=== PATIENT | male | born 1985 | race Caucasian/White ===

== ENCOUNTER 2016-05-14 21:12 | Emergency (ER) | payer SELFPAY ==
--- NOTE | 2016-05-14 22:13 | ED NURSING NOTES ---
Clinical Report - Nurses [facility] [address] [place] [address] 05/14/2016 21:15 Patient: CECE ARMANDO TRIAGE Triage time 21:47 May 14 2016. Acuity: LEVEL 5. Chief Complaint: (itching and picking). Alert. No acute distress. JENNY COMA SCORE: [place] Coma Scale: 15- eyes open spontaneously (4); best verbal response- oriented x 4 (5); best motor response- obeys commands (6). --21:49 Margarita Greco R.N. 21:47 05/14/16. BP: 119/84. HR: 91. RR: 18. O2 saturation: 97%. Temp: 98.2 F. Pain level now 0/10. --21:49 Margarita Greco R.N. Weight: 72.5 kg estimated. Height/Length: 69 inches Estimated. BMI: 23.6. --21:47 Margarita Greco R.N. Medications None. --21:48 Margarita Greco R.N. Allergies No Known Drug Allergy. --21:48 Margarita Greco R.N. History Arrived by private vehicle. Historian: patient. Accompanied by friend. Primary physician (none). This is a recurrent problem. Treatment HOSPITALITY INTERN: None. SOCIAL HX: Smoker- current status unknown. History of IV drug use: heroin, methamphetamines. NUTRITIONAL RISK ASSESSMENT: The nutritional risk assessment revealed no deficiencies. FUNCTIONAL ASSESSMENT: Functional assessment: no impairments noted. LEARNING NEEDS ASSESSMENT: The learning needs assessment revealed no barriers. SKIN INTEGRITY ASSESSMENT: Skin integrity risk assessment completed. No skin integrity risk identified. --21:49 Margarita Greco R.N. PROBLEMS: MRSA Infection. Lice. Paronychia. Tetanus Status. --21:48 Margarita Greco R.N. ADDITIONAL SURGERIES: Left middle finger. Right forearm . --21:48 Margarita Greco R.N. Interventions ID band on patient. To room. --21:49 Margarita Greco R.N. PHYSICAL ASSESSMENT Ambulatory to room. GENERAL / NEURO / PSYCH: Appears in no acute distress. ( pt is very calm). RESPIRATORY: Respirations not labored. SKIN: Skin rash. ( red scab like sores all over chest, face, head, ears, and hands. All scabbed over. Pt is picking at his arms.). Skin breakdown noted. --22:09 Margarita Greco R.N. NURSING PROGRESS NOTES ( pt evaluated by CHIEF ARCHITECT in triage room.). --22:10 Margarita Greco R.N. DISPOSITION / DISCHARGE Departure time: 22:10 May 14 2016. Condition at departure: stable. No learning barriers present. Director Cpg verbalized understanding. Written instructions provided in Kazakh. The patient was discharged by the nurse practitioner. He was discharged home and accompanied by program consultant. He left the Emergency Department ambulatory and via private vehicle. Director Cpg driving. --22:11 Margarita Greco R.N. Reviewed medication(s). --22:35 Margarita Greco R.N. Locked/Released at 05/14/2016 23:01 by Margarita Greco R.N.
--- NOTE | 2016-05-14 22:13 | ED CLINICAL REPORT ---
Clinical Report - Physicians/Mid Levels [facility] [address] [place] [address] 05/14/2016 21:15 Patient: CECE ARMANDO Time Seen: 0. Arrived- By private vehicle. Historian- patient and family. HISTORY OF PRESENT ILLNESS Chief Complaint: (parasites). This started unknown and is still present and worsening. It is described as itchy. Not painful or burning. It has been generalized in location. Cause has been identified (states that there are worms coming out of his skin). (pt here with girlfriend with same thing states he just got out of intermediate, and since then the worms have gotten worse, they are coming out of his ears and out of skin, and he picks them out, can't stop picking at them). Similar symptoms previously: Chronically. Recent medical care: Not recently seen/assessed. REVIEW OF SYSTEMS All systems otherwise negative, except as recorded above. PAST HISTORY See nurses notes. PROBLEMS: MRSA Infection. Lice. Paronychia. Tetanus Status. --21:48 Margarita Greco R.N. ADDITIONAL SURGERIES: Left middle finger. Right forearm . --21:48 Margarita Greco R.N. SOCIAL HISTORY Smoker- current status unknown. Occasional alcohol use. History of heavy IV drug use: heroin, methamphetamines. Recently used drugs today. Under influence in ED. Is a local resident. He lives with a family member. FAMILY HISTORY Negative. ADDITIONAL NOTES The nursing notes have been reviewed with agreement regarding the chief complaint, HPI, ROS, PMH and patient medications and allergies. PHYSICAL EXAM Vital Signs: 05/14/2016 21:47 BP: 119/84. HR: 91. RR: 18. O2 saturation: 97%. Temp: 98.2 F. Have been reviewed as normal and appear to be correct. Appearance: Alert. Oriented X3. No acute distress. Eyes: Pupils equal, round and reactive to light. Conjunctivae and eyelids normal. ENT: Ears normal. Nose normal. Neck: Neck supple. Respiratory: No respiratory distress. Skin: Skin warm and dry. Normal skin color. Rash present. Normal skin turgor. (multiple scabs of different sizes, generalized, face, neck, head, arms, trunk, with excoriations). Extremities: Normal external inspection. Extremities nontender. Neuro: Oriented X 3. No motor deficit. No sensory deficit. PROGRESS AND PROCEDURES Patient and family counseled in person regarding the patient's stable condition and diagnosis. 22:12. Differential Diagnosis: Other possible considerations: substance abuse, scabies, psychogenic, excoriations, mrsa, abscess, cellulitis, impetigo. Above considerations are based on history and physical exam. Differential diagnosis was discussed with patient and patient's family. Disposition: Discharged home in good and unchanged condition (22:13). Condition: good and stable. CLINICAL IMPRESSION Bullous impetigo Chronic substance abuse- heroin, methamphetamines with intoxication and delirium. INSTRUCTIONS (over the counter pyrantel pameoate, and may consider bathing in lice shampoo, as discussed). Warnings: GENERAL WARNINGS: Return or contact your physician immediately if your condition worsens or changes unexpectedly, if not improving as expected, or if other problems arise. Specifically return if problem worsens. Prescription Medications: Elimite 5% Cream: Shower & dry, then apply cream to whole body from neck down, leave on 8 hours then shower & launder clothes & bedclothes in hot water. Dispense sixty (60) gm. No refill. Substitution is permissible. Keflex 500 mg: take 1 capsule orally every 6 hours for 7 days. No refills. Substitution is permissible. Bactroban 2% ointment: apply small amount to affected area three times daily for 5 days. Dispense twenty-two (22) grams. No refills. Substitution is permissible. Follow-up: Follow up with your doctor in about one week as needed. Call for an appointment. Summary of care provided to patient. Understanding of the discharge instructions verbalized by patient. (Electronically signed by Michelle Morley A.R.N.P. 05/14/2016 22:41)
--- NOTE | 2016-05-14 22:13 | ED NURSING NOTES ---
Clinical Report - Nurses [facility] [address] [place] [address] 05/14/2016 21:15 Patient: CECE ARMANDO TRIAGE Triage time 21:47 May 14 2016. Acuity: LEVEL 5. Chief Complaint: (itching and picking). Alert. No acute distress. JENNY COMA SCORE: [place] Coma Scale: 15- eyes open spontaneously (4); best verbal response- oriented x 4 (5); best motor response- obeys commands (6). --21:49 Margarita Greco R.N. 21:47 05/14/16. BP: 119/84. HR: 91. RR: 18. O2 saturation: 97%. Temp: 98.2 F. Pain level now 0/10. --21:49 Margarita Greco R.N. Weight: 72.5 kg estimated. Height/Length: 69 inches Estimated. BMI: 23.6. --21:47 Margarita Greco R.N. Medications None. --21:48 Margarita Greco R.N. Allergies No Known Drug Allergy. --21:48 Margarita Greco R.N. History Arrived by private vehicle. Historian: patient. Accompanied by friend. Primary physician (none). This is a recurrent problem. Treatment SENIOR PRODUCT ENGINEER: None. SOCIAL HX: Smoker- current status unknown. History of IV drug use: heroin, methamphetamines. NUTRITIONAL RISK ASSESSMENT: The nutritional risk assessment revealed no deficiencies. FUNCTIONAL ASSESSMENT: Functional assessment: no impairments noted. LEARNING NEEDS ASSESSMENT: The learning needs assessment revealed no barriers. SKIN INTEGRITY ASSESSMENT: Skin integrity risk assessment completed. No skin integrity risk identified. --21:49 Margarita Greco R.N. PROBLEMS: MRSA Infection. Lice. Paronychia. Tetanus Status. --21:48 Margarita Greco R.N. ADDITIONAL SURGERIES: Left middle finger. Right forearm . --21:48 Margarita Greco R.N. Interventions ID band on patient. To room. --21:49 Margarita Greco R.N. PHYSICAL ASSESSMENT Ambulatory to room. GENERAL / NEURO / PSYCH: Appears in no acute distress. ( pt is very calm). RESPIRATORY: Respirations not labored. SKIN: Skin rash. ( red scab like sores all over chest, face, head, ears, and hands. All scabbed over. Pt is picking at his arms.). Skin breakdown noted. --22:09 Margarita Greco R.N. NURSING PROGRESS NOTES ( pt evaluated by FUNERAL HOME ASSOCIATE in triage room.). --22:10 Margarita Greco R.N. DISPOSITION / DISCHARGE Departure time: 22:10 May 14 2016. Condition at departure: stable. No learning barriers present. Helpdesk Administrator verbalized understanding. Written instructions provided in Japanese. The patient was discharged by the nurse practitioner. He was discharged home and accompanied by carpet sewing machine operator. He left the Emergency Department ambulatory and via private vehicle. Helpdesk Administrator driving. --22:11 Margarita Greco R.N. Reviewed medication(s). --22:35 Margarita Greco R.N. Locked/Released at 05/14/2016 23:01 by Margarita Greco R.N.
--- NOTE | 2016-05-14 23:02 | ED MED RECONCILIATION SUMMARY ---
Patient: CECE ARMANDO Medication Reconciliation Report [facility] VisitID: [id number] [address] [place] [address] 30y, M Registration Date/Time: 05/14/2016 Weight: 72.5 kg Height/Length: 69 in. BMI: 23.6 ALLERGIES: No Known Drug Allergy The patient's Home Medications are listed below: NONE. The source(s) of the original Home Medication information: Not obtained. The following Medications were given to the patient in the Emergency Department: None. The following Medications were prescribed to the patient: Elimite 5% Cream: Shower & dry, then apply cream to whole body from neck down, leave on 8 hours then shower & launder clothes & bedclothes in hot water. Dispense sixty (60) gm. No refill. Substitution is permissible. -- Michelle Morley A.R.N.P. Keflex 500 mg: take 1 capsule orally every 6 hours for 7 days. No refills. Substitution is permissible. -- Michelle Morley A.R.N.P. Bactroban 2% ointment: apply small amount to affected area three times daily for 5 days. Dispense twenty-two (22) grams. No refills. Substitution is permissible. -- Michelle Morley A.R.N.P.
--- NOTE | 2016-05-14 23:02 | ED MAR SUMMARY ---
..... Medication Administration Record [facility] [address], [place] [id number] Patient: CECE ARMANDO Johnson Visit ID: [id number] 30y, M Weight: 72.5 kg Height/Length: 69 in BMI: 23.6 ALLERGIES: No Known Drug Allergy
--- NOTE | 2016-05-14 23:02 | ED DISCHARGE INSTRUCTIONS ---
Patient: CECE DE LEON General Instructions [facility] VisitID: [id number] [address] [place] [address] 30y, M Registration Date/Time: 05/14/2016 Bullous impetigo Chronic substance abuse- heroin, methamphetamines with intoxication and delirium. INSTRUCTIONS (over the counter pyrantel pameoate, and may consider bathing in lice shampoo, as discussed). Warnings: GENERAL WARNINGS: Return or contact your physician immediately if your condition worsens or changes unexpectedly, if not improving as expected, or if other problems arise. Specifically return if problem worsens. Prescription Medications: Elimite 5% Cream: Shower & dry, then apply cream to whole body from neck down, leave on 8 hours then shower & launder clothes & bedclothes in hot water. Dispense sixty (60) gm. No refill. Substitution is permissible. Keflex 500 mg: take 1 capsule orally every 6 hours for 7 days. No refills. Substitution is permissible. Bactroban 2% ointment: apply small amount to affected area three times daily for 5 days. Dispense twenty-two (22) grams. No refills. Substitution is permissible. Follow-up: Follow up with your doctor in about one week as needed. Call for an appointment. Summary of care provided to patient. Understanding of the discharge instructions verbalized by patient. ADDITIONAL INFORMATION Impetigo Impetigo is the name for a bacterial infection of the skin. It is common in children. It may start as an infected insect bite or scratch and spread rapidly to other areas of the body. It is contagious and can be given to other children by touching. The sores usually have a de leon brown crust and grow gradually larger as they spread. Impetigo requires treatment with an antibiotic. Home care The following guidelines will help you care for your infection at home: Trim fingernails and cover sores with an adhesive bandage if necessary to prevent scratching. Picking at the sores may leave a scar. Wash hands (yours and your child's) often. This will avoid spreading the infection to other parts of the body and to other children. Do not let your child share washcloths, towels, pillows, sheets, or clothes with others. Wash these items in hot water before using again. The sores should be washed three times a day with soap and water. Use a washcloth to scrub the sores and remove the crust. Then apply an antibacterial cream as directed. If antibiotic pills or liquid was prescribed, be sure your child takes all the medicine until it is gone. Your child should stay out of school until completing two full days of antibiotic treatment. Use acetaminophen for fever, fussiness or discomfort, unless another medicine was prescribed. In infants over six months of age, you may use ibuprofen instead of acetaminophen. If your child has chronic liver or kidney disease or has ever had a stomach ulcer or GI bleeding, talk with your doctor before using these medicines. (Aspirin should never be used in anyone under 18 years of age who is ill with a fever. It may cause severe liver damage. Follow-up care Follow up with your doctor or this facility if the sores continue to spread after three days of treatment. It will take about 710 days to heal completely. When to seek medical care Get prompt medical attention if any of the following occur: Increasing number of sores or spreading areas of redness after two days of treatment with antibiotics Increasing swelling, or pain Fever of 100.4F (38C) oral or 101.4F (38.5C) rectal or higher, not better with fever medication Increased amounts of fluid or pus coming from the sores Unusual drowsiness, weakness, or change in behavior Loss of appetite or vomiting Drug Abuse Use and abuse of such drugs as marijuana, amphetamines (speed, crank), cocaine, heroin or prescription pain medicines (Vicodin, codeine), sedatives and sleeping pills (Valium, Klonopin), PCP, mescaline and LSD may lead to addiction or dependence. Once this occurs, you are at greater risk for any of the following: Craving for the drug and unable to stop using the drug even though you think you want to stop (psychological dependence) Drug withdrawal symptoms if you stop taking the drug (physical dependence) Loss of your job or your family Arrest, conviction and assisted sentence for possession of an illegal substance or for driving under the influence of such a substance Accidental injuries to yourself or others while you are under the influence of the drug (in a car or at home). HIV infection (much greater risk if you use IV drugs) Other sexually transmitted diseases (herpes, chlamydia, gonorrhea and others) Severe and fatal infection of the heart valves (if you use IV drugs) Stroke, heart attack, hepatitis B or C, kidney failure from overdose Home Care: Admit you have a drug problem. Ask for help from your family and close friends. Seek professional help. This could be in the form of individual psychotherapy or counseling or an outpatient, inpatient, or residential drug treatment program. Join a self-help group for drug abuse. Avoid friends who abuse drugs themselves or tempt you to continue abusing drugs. Eat a balanced diet and begin a regular exercise program. Follow Up with your doctor or as advised by our staff. Contact one of the resources below for help. National [place] on Alcoholism and Drug Dependence www.ncadd.org 910-346-XOQE Narcotics Anonymous www.na.org 393-039-3531 National Alcohol and Substance Abuse Information Center (for referral to treatment programs) www.[employer] 189-341-3457 Get Prompt Medical Attention if any of the following occur: Agitation, anxiety, unable to sleep Unintended weight loss (more than 10 to 15 pounds over 3 months) Seizure Chest pain Fever of 100.4F (38C) or higher, or as directed by your healthcare provider Excess drowsiness or inability to be awakened Shortness of breath Slow breathing under 8 breaths per minute Cough with colored sputum Redness, swelling or tenderness at an injection site Permethrin Topical cream What is this medicine? PERMETHRIN (per METH rin) skin cream is used to treat scabies. How should I use this medicine? This medicine is for external use only. Do not take by mouth. Follow the directions on the prescription label. A bath or shower is NOT recommended before applying this medicine. Thoroughly rub the cream into all skin surfaces, from your head to the soles of your feet. It is important to apply it everywhere on your body, not just where the rash is. Apply the cream between fingers and toe creases, in the folds of the wrist and waistline, in the cleft of the buttocks, on the genitals, and in the belly button. Use a toothpick to apply the cream beneath your fingernails and toenails. Nails should be cut short. If you have little or no hair, or you are applying the cream to an or young child, make sure you rub the cream into the neck, scalp, hairline, temples, and forehead. Leave it on for 8 to 14 hours, then remove it by bathing and shampooing. If you are applying this medicine to another person, wear plastic or disposable gloves to protect yourself from infestation. Do not get this medicine in your eyes. If you do, rinse out with plenty of cool tap water. Talk to your crop scout regarding the use of this medicine in children. While this drug may be prescribed for children as young as 2 months of age for selected conditions, precautions do apply. What side effects may I notice from receiving this medicine? Side effects that usually do not require medical attention (report to your doctor or health critical care rn if they continue or are bothersome): itching numbness rash redness or mild swelling of the skin stinging or burning tingling sensation What may interact with this medicine? Interactions are not expected. Do not use any other skin products on the affected area without telling your doctor or health critical care rn. What if I miss a dose? This does not apply. Where should I keep my medicine? Keep out of the reach of children. Store at room temperature away from heat and direct light. Do not refrigerate or freeze. Throw away any unused medicine after the expiration date. What should I tell my health care provider before I take this medicine? They need to know if you have any of these conditions: asthma an unusual or allergic reaction to permethrin, veterinary or household insecticides, other medicines, chrysanthemums, foods, dyes, or preservatives or trying to get breast-feeding What should I watch for while using this medicine? It is not unusual for itching and rash to continue for as long as 2 to 4 weeks after treatment. These symptoms may be a temporary reaction to the remains of the mites. This does not mean this cream did not work or that it needs to be reapplied. If you feel that the itching and rash is intense or if it continues beyond 4 weeks, talk to your doctor or health critical care rn right away. Scabies is spread by direct skin contact with an infected person. Family members and sexual partners may require treatment with this medicine. You should discuss this with your doctor or health critical care rn. Using a normal washing cycle, you should wash all clothing, towels and bed linen that has touched your skin. You do not need to rewash clean clothing that has not yet been worn. Roy, furniture, rugs, floors, and sears do not need to be cleaned in any special manner. Cephalexin Monohydrate Oral tablet What is this medicine? CEPHALEXIN (sef a NEMESIO in) is a cephalosporin antibiotic. It is used to treat certain kinds of bacterial infections It will not work for colds, flu, or other viral infections. How should I use this medicine? Take this medicine by mouth with a full glass of water. Follow the directions on the prescription label. This medicine can be taken with or without food. Take your medicine at regular intervals. Do not take your medicine more often than directed. Take all of your medicine as directed even if you think you are better. Do not skip doses or stop your medicine early. Talk to your crop scout regarding the use of this medicine in children. While this drug may be prescribed for selected conditions, precautions do apply. What side effects may I notice from receiving this medicine? Side effects that you should report to your doctor or health critical care rn as soon as possible: allergic reactions like skin rash, itching or hives, swelling of the face, lips, or tongue breathing problems pain or trouble passing urine redness, blistering, peeling or loosening of the skin, including inside the mouth severe or watery diarrhea unusually weak or tired yellowing of the eyes, skin Side effects that usually do not require medical attention (report to your doctor or health critical care rn if they continue or are bothersome): gas or heartburn genital or anal irritation headache joint or muscle pain nausea, vomiting What may interact with this medicine? probenecid some other antibiotics What if I miss a dose? If you miss a dose, take it as soon as you can. If it is almost time for your next dose, take only that dose. Do not take double or extra doses. There should be at least 4 to 6 hours between doses. Where should I keep my medicine? Keep out of the reach of children. Store at room temperature between 59 and 86 degrees F (15 and 30 degrees C). Throw away any unused medicine after the expiration date. What should I tell my health care provider before I take this medicine? They need to know if you have any of these conditions: kidney disease stomach or intestine problems, especially colitis an unusual or allergic reaction to cephalexin, other cephalosporins, penicillins, other antibiotics, medicines, foods, dyes or preservatives or trying to get breast-feeding What should I watch for while using this medicine? Tell your doctor or health critical care rn if your symptoms do not begin to improve in a few days. Do not treat diarrhea with over the counter products. Contact your doctor if you have diarrhea that lasts more than 2 days or if it is severe and watery. If you have diabetes, you may get a false-positive result for sugar in your urine. Check with your doctor or health critical care rn. Mupirocin Topical ointment What is this medicine? MUPIROCIN (myoo PEER oh sin) is an antibiotic. It is used on the skin to treat skin infections. How should I use this medicine? This medicine is for external use only. Follow the directions on the prescription label. Wash your hands before and after use. Before applying, wash the affected area with mild soap and water and pat dry. Apply a small amount to the affected area and rub gently. You can cover the area with a gauze dressing. Do not get this medicine in your eyes. If you do, rinse out with plenty of cool tap water. Do not use your medicine more often than directed. Finish the full course of medicine prescribed by your doctor or health critical care rn even if you think your condition is better. Do not use over large areas of burnt skin. Talk to your crop scout regarding the use of this medicine in children. Special care may be needed. What side effects may I notice from receiving this medicine? Side effects that you should report to your doctor or health critical care rn as soon as possible: skin rash, redness, continued swelling, burning, itching, stinging, or pain Side effects that usually do not require medical attention (report to your doctor or health critical care rn if they continue or are bothersome): dry skin, itching What may interact with this medicine? Interactions are not expected. Do not use any other skin products on the affected area without telling your doctor or health critical care rn. What if I miss a dose? If you miss a dose, take it as soon as you can. If it is almost time for your next dose, take only that dose. Do not take double or extra doses. Where should I keep my medicine? Keep out of the reach of children. Store at room temperature between 20 and 25 degrees C (68 and 77 degrees F). Throw away any unused medicine after the expiration date. What should I tell my health care provider before I take this medicine? They need to know if you have any of these conditions: an unusual or allergic reaction to mupirocin, polyethylene glycol (PEG), or other topical antibiotic medicine or trying to get breast-feeding What should I watch for while using this medicine? Tell your doctor or health critical care rn if your skin condition does not begin to improve within 3 to 5 days. You have been given the following additional information: Impetigo (Child) Drug Abuse Permethrin Topical cream Cephalexin Monohydrate Oral tablet Mupirocin Topical ointment (Electronically signed by Michelle Morley A.R.N.P. 05/14/2016 22:41)
--- NOTE | 2016-05-14 23:02 | ED MAR SUMMARY ---
..... Medication Administration Record [facility] [address], [place] [id number] Patient: CECE ARMANDO Johnson Visit ID: [id number] 30y, M Weight: 72.5 kg Height/Length: 69 in BMI: 23.6 ALLERGIES: No Known Drug Allergy
--- NOTE | 2016-05-14 23:02 | ED DISCHARGE INSTRUCTIONS ---
Patient: ECCE DE LEON General Instructions [facility] VisitID: [id number] [address] [place] [address] 30y, M Registration Date/Time: 05/14/2016 Bullous impetigo Chronic substance abuse- heroin, methamphetamines with intoxication and delirium. INSTRUCTIONS (over the counter pyrantel pameoate, and may consider bathing in lice shampoo, as discussed). Warnings: GENERAL WARNINGS: Return or contact your physician immediately if your condition worsens or changes unexpectedly, if not improving as expected, or if other problems arise. Specifically return if problem worsens. Prescription Medications: Elimite 5% Cream: Shower & dry, then apply cream to whole body from neck down, leave on 8 hours then shower & launder clothes & bedclothes in hot water. Dispense sixty (60) gm. No refill. Substitution is permissible. Keflex 500 mg: take 1 capsule orally every 6 hours for 7 days. No refills. Substitution is permissible. Bactroban 2% ointment: apply small amount to affected area three times daily for 5 days. Dispense twenty-two (22) grams. No refills. Substitution is permissible. Follow-up: Follow up with your doctor in about one week as needed. Call for an appointment. Summary of care provided to patient. Understanding of the discharge instructions verbalized by patient. ADDITIONAL INFORMATION Impetigo Impetigo is the name for a bacterial infection of the skin. It is common in children. It may start as an infected insect bite or scratch and spread rapidly to other areas of the body. It is contagious and can be given to other children by touching. The sores usually have a de leon brown crust and grow gradually larger as they spread. Impetigo requires treatment with an antibiotic. Home care The following guidelines will help you care for your infection at home: Trim fingernails and cover sores with an adhesive bandage if necessary to prevent scratching. Picking at the sores may leave a scar. Wash hands (yours and your child's) often. This will avoid spreading the infection to other parts of the body and to other children. Do not let your child share washcloths, towels, pillows, sheets, or clothes with others. Wash these items in hot water before using again. The sores should be washed three times a day with soap and water. Use a washcloth to scrub the sores and remove the crust. Then apply an antibacterial cream as directed. If antibiotic pills or liquid was prescribed, be sure your child takes all the medicine until it is gone. Your child should stay out of school until completing two full days of antibiotic treatment. Use acetaminophen for fever, fussiness or discomfort, unless another medicine was prescribed. In infants over six months of age, you may use ibuprofen instead of acetaminophen. If your child has chronic liver or kidney disease or has ever had a stomach ulcer or GI bleeding, talk with your doctor before using these medicines. (Aspirin should never be used in anyone under 18 years of age who is ill with a fever. It may cause severe liver damage. Follow-up care Follow up with your doctor or this facility if the sores continue to spread after three days of treatment. It will take about 710 days to heal completely. When to seek medical care Get prompt medical attention if any of the following occur: Increasing number of sores or spreading areas of redness after two days of treatment with antibiotics Increasing swelling, or pain Fever of 100.4F (38C) oral or 101.4F (38.5C) rectal or higher, not better with fever medication Increased amounts of fluid or pus coming from the sores Unusual drowsiness, weakness, or change in behavior Loss of appetite or vomiting Drug Abuse Use and abuse of such drugs as marijuana, amphetamines (speed, crank), cocaine, heroin or prescription pain medicines (Vicodin, codeine), sedatives and sleeping pills (Valium, Klonopin), PCP, mescaline and LSD may lead to addiction or dependence. Once this occurs, you are at greater risk for any of the following: Craving for the drug and unable to stop using the drug even though you think you want to stop (psychological dependence) Drug withdrawal symptoms if you stop taking the drug (physical dependence) Loss of your job or your family Arrest, conviction and [facility] sentence for possession of an illegal substance or for driving under the influence of such a substance Accidental injuries to yourself or others while you are under the influence of the drug (in a car or at home). HIV infection (much greater risk if you use IV drugs) Other sexually transmitted diseases (herpes, chlamydia, gonorrhea and others) Severe and fatal infection of the heart valves (if you use IV drugs) Stroke, heart attack, hepatitis B or C, kidney failure from overdose Home Care: Admit you have a drug problem. Ask for help from your family and close friends. Seek professional help. This could be in the form of individual psychotherapy or counseling or an outpatient, inpatient, or residential drug treatment program. Join a self-help group for drug abuse. Avoid friends who abuse drugs themselves or tempt you to continue abusing drugs. Eat a balanced diet and begin a regular exercise program. Follow Up with your doctor or as advised by our staff. Contact one of the resources below for help. National [place] on Alcoholism and Drug Dependence www.ncadd.org 298-136-UCLY Narcotics Anonymous www.na.org 864-138-1283 National Alcohol and Substance Abuse Information Center (for referral to treatment programs) www.Behalf 861-856-8811 Get Prompt Medical Attention if any of the following occur: Agitation, anxiety, unable to sleep Unintended weight loss (more than 10 to 15 pounds over 3 months) Seizure Chest pain Fever of 100.4F (38C) or higher, or as directed by your healthcare provider Excess drowsiness or inability to be awakened Shortness of breath Slow breathing under 8 breaths per minute Cough with colored sputum Redness, swelling or tenderness at an injection site Permethrin Topical cream What is this medicine? PERMETHRIN (per METH rin) skin cream is used to treat scabies. How should I use this medicine? This medicine is for external use only. Do not take by mouth. Follow the directions on the prescription label. A bath or shower is NOT recommended before applying this medicine. Thoroughly rub the cream into all skin surfaces, from your head to the soles of your feet. It is important to apply it everywhere on your body, not just where the rash is. Apply the cream between fingers and toe creases, in the folds of the wrist and waistline, in the cleft of the buttocks, on the genitals, and in the belly button. Use a toothpick to apply the cream beneath your fingernails and toenails. Nails should be cut short. If you have little or no hair, or you are applying the cream to an or young child, make sure you rub the cream into the neck, scalp, hairline, temples, and forehead. Leave it on for 8 to 14 hours, then remove it by bathing and shampooing. If you are applying this medicine to another person, wear plastic or disposable gloves to protect yourself from infestation. Do not get this medicine in your eyes. If you do, rinse out with plenty of cool tap water. Talk to your forklift technician regarding the use of this medicine in children. While this drug may be prescribed for children as young as 2 months of age for selected conditions, precautions do apply. What side effects may I notice from receiving this medicine? Side effects that usually do not require medical attention (report to your doctor or health career technical education instructor if they continue or are bothersome): itching numbness rash redness or mild swelling of the skin stinging or burning tingling sensation What may interact with this medicine? Interactions are not expected. Do not use any other skin products on the affected area without telling your doctor or health career technical education instructor. What if I miss a dose? This does not apply. Where should I keep my medicine? Keep out of the reach of children. Store at room temperature away from heat and direct light. Do not refrigerate or freeze. Throw away any unused medicine after the expiration date. What should I tell my health care provider before I take this medicine? They need to know if you have any of these conditions: asthma an unusual or allergic reaction to permethrin, veterinary or household insecticides, other medicines, chrysanthemums, foods, dyes, or preservatives or trying to get breast-feeding What should I watch for while using this medicine? It is not unusual for itching and rash to continue for as long as 2 to 4 weeks after treatment. These symptoms may be a temporary reaction to the remains of the mites. This does not mean this cream did not work or that it needs to be reapplied. If you feel that the itching and rash is intense or if it continues beyond 4 weeks, talk to your doctor or health career technical education instructor right away. Scabies is spread by direct skin contact with an infected person. Family members and sexual partners may require treatment with this medicine. You should discuss this with your doctor or health career technical education instructor. Using a normal washing cycle, you should wash all clothing, towels and bed linen that has touched your skin. You do not need to rewash clean clothing that has not yet been worn. [place], furniture, rugs, floors, and sears do not need to be cleaned in any special manner. Cephalexin Monohydrate Oral tablet What is this medicine? CEPHALEXIN (sef a NEMESIO in) is a cephalosporin antibiotic. It is used to treat certain kinds of bacterial infections It will not work for colds, flu, or other viral infections. How should I use this medicine? Take this medicine by mouth with a full glass of water. Follow the directions on the prescription label. This medicine can be taken with or without food. Take your medicine at regular intervals. Do not take your medicine more often than directed. Take all of your medicine as directed even if you think you are better. Do not skip doses or stop your medicine early. Talk to your forklift technician regarding the use of this medicine in children. While this drug may be prescribed for selected conditions, precautions do apply. What side effects may I notice from receiving this medicine? Side effects that you should report to your doctor or health career technical education instructor as soon as possible: allergic reactions like skin rash, itching or hives, swelling of the face, lips, or tongue breathing problems pain or trouble passing urine redness, blistering, peeling or loosening of the skin, including inside the mouth severe or watery diarrhea unusually weak or tired yellowing of the eyes, skin Side effects that usually do not require medical attention (report to your doctor or health career technical education instructor if they continue or are bothersome): gas or heartburn genital or anal irritation headache joint or muscle pain nausea, vomiting What may interact with this medicine? probenecid some other antibiotics What if I miss a dose? If you miss a dose, take it as soon as you can. If it is almost time for your next dose, take only that dose. Do not take double or extra doses. There should be at least 4 to 6 hours between doses. Where should I keep my medicine? Keep out of the reach of children. Store at room temperature between 59 and 86 degrees F (15 and 30 degrees C). Throw away any unused medicine after the expiration date. What should I tell my health care provider before I take this medicine? They need to know if you have any of these conditions: kidney disease stomach or intestine problems, especially colitis an unusual or allergic reaction to cephalexin, other cephalosporins, penicillins, other antibiotics, medicines, foods, dyes or preservatives or trying to get breast-feeding What should I watch for while using this medicine? Tell your doctor or health career technical education instructor if your symptoms do not begin to improve in a few days. Do not treat diarrhea with over the counter products. Contact your doctor if you have diarrhea that lasts more than 2 days or if it is severe and watery. If you have diabetes, you may get a false-positive result for sugar in your urine. Check with your doctor or health career technical education instructor. Mupirocin Topical ointment What is this medicine? MUPIROCIN (myoo PEER oh sin) is an antibiotic. It is used on the skin to treat skin infections. How should I use this medicine? This medicine is for external use only. Follow the directions on the prescription label. Wash your hands before and after use. Before applying, wash the affected area with mild soap and water and pat dry. Apply a small amount to the affected area and rub gently. You can cover the area with a gauze dressing. Do not get this medicine in your eyes. If you do, rinse out with plenty of cool tap water. Do not use your medicine more often than directed. Finish the full course of medicine prescribed by your doctor or health career technical education instructor even if you think your condition is better. Do not use over large areas of burnt skin. Talk to your forklift technician regarding the use of this medicine in children. Special care may be needed. What side effects may I notice from receiving this medicine? Side effects that you should report to your doctor or health career technical education instructor as soon as possible: skin rash, redness, continued swelling, burning, itching, stinging, or pain Side effects that usually do not require medical attention (report to your doctor or health career technical education instructor if they continue or are bothersome): dry skin, itching What may interact with this medicine? Interactions are not expected. Do not use any other skin products on the affected area without telling your doctor or health career technical education instructor. What if I miss a dose? If you miss a dose, take it as soon as you can. If it is almost time for your next dose, take only that dose. Do not take double or extra doses. Where should I keep my medicine? Keep out of the reach of children. Store at room temperature between 20 and 25 degrees C (68 and 77 degrees F). Throw away any unused medicine after the expiration date. What should I tell my health care provider before I take this medicine? They need to know if you have any of these conditions: an unusual or allergic reaction to mupirocin, polyethylene glycol (PEG), or other topical antibiotic medicine or trying to get breast-feeding What should I watch for while using this medicine? Tell your doctor or health career technical education instructor if your skin condition does not begin to improve within 3 to 5 days. You have been given the following additional information: Impetigo (Child) Drug Abuse Permethrin Topical cream Cephalexin Monohydrate Oral tablet Mupirocin Topical ointment (Electronically signed by Michelle Morley A.R.N.P. 05/14/2016 22:41)
--- NOTE | 2016-05-14 23:02 | ED MED RECONCILIATION SUMMARY ---
Patient: CECE ARMANDO Medication Reconciliation Report [facility] VisitID: [id number] [address] [place] [address] 30y, M Registration Date/Time: 05/14/2016 Weight: 72.5 kg Height/Length: 69 in. BMI: 23.6 ALLERGIES: No Known Drug Allergy The patient's Home Medications are listed below: NONE. The source(s) of the original Home Medication information: Not obtained. The following Medications were given to the patient in the Emergency Department: None. The following Medications were prescribed to the patient: Elimite 5% Cream: Shower & dry, then apply cream to whole body from neck down, leave on 8 hours then shower & launder clothes & bedclothes in hot water. Dispense sixty (60) gm. No refill. Substitution is permissible. -- Michelle Morley A.R.N.P. Keflex 500 mg: take 1 capsule orally every 6 hours for 7 days. No refills. Substitution is permissible. -- Michelle Morley A.R.N.P. Bactroban 2% ointment: apply small amount to affected area three times daily for 5 days. Dispense twenty-two (22) grams. No refills. Substitution is permissible. -- Michelle Morley A.R.N.P.
== END 2016-05-14 22:35 | disposition home or self-care (01) ==
LOC: ED SRH 21:12
DX: L01.03 Bullous impetigo (principal); F11.121 Opioid abuse with intoxication delirium; F15.121 Other stimulant abuse with intoxication delirium

== ENCOUNTER 2016-05-15 20:47 | Emergency (ER) | payer SELFPAY ==
--- NOTE | 2016-05-15 23:26 | ED CLINICAL REPORT ---
Clinical Report - Physicians/Mid Levels [facility] [address] [place] [address] 05/15/2016 20:48 Patient: CECE ARMANDO Arrived- By private vehicle. Historian- patient. HISTORY OF PRESENT ILLNESS Is no longer unconscious. He has recovered. Chief Complaint: NEAR-SYNCOPE. It was abrupt in onset and has been intermittent. Patient was last known well (prior to onset of symptoms). This occurred today. The patient had preceding symptoms of light-headedness. The patient felt faint. No loss of consciousness. At time of event, he had just stood up. The episode was brief and lasted minutes. Injuries noted. (Patient reports no shortness of breath. reports having rash to the body. Patient reports that this is been going on for years. Patient states that he has been following up with Dr. Limon has not been told exactly what they are. Patient reports that he's been trying to treat them as appropriate and dirt did however they have not healed. Patient reports that there are "bugs coming out of them. "Patient reports a day, out at night. Patient had brought with him a bottleof the bugs that he is reported that are coming out of his skin.). Similar symptoms previously: Recent medical care: The patient was seen recently by a health care provider. REVIEW OF SYSTEMS No headache, dizziness, weakness, chest pain or joint pain. He has had skin rash. All systems otherwise negative, except as recorded above. PAST HISTORY See nurses notes. Medications: None. Allergies: No Known Drug Allergy. SOCIAL HISTORY Smoker- current status unknown. History of drug use: methamphetamines. No alcohol use. ADDITIONAL NOTES The nursing notes have been reviewed. PHYSICAL EXAM Vital Signs: 05/15/2016 20:56 BP: 131/72. HR: 73. RR: 16. O2 saturation: 97%. Temp: 98.3 F. Pain level now: 5/10. Blood pressure normal. Oxygen saturation normal. Appearance: Alert. No acute distress. Eyes: Pupils equal, round and reactive to light. No nystagmus. Extraocular movements normal. ENT: Normal ENT inspection. TM's normal. Moist mucous membranes. Pharynx normal. Neck: Normal inspection. Neck supple. CVS: Normal heart rate and rhythm. Heart sounds normal. Pulses normal. Respiratory: No respiratory distress. Breath sounds normal. Abdomen: Soft and nontender. No organomegaly. Back: Normal inspection. Skin: (excoriated areas of skin to the areas that are easily reached with hands. No lesions noted to the middle of the back. Wounds are in multiple stages of healing. No erythema. No crepitus. Appropriate tender.). Extremities: Extremities exhibit normal ROM. No lower extremity edema. Neuro: Alert. Oriented X 3. Mood/affect normal. Speech normal. Cranial nerves normal (as tested). No cerebellar findings. No motor deficit. No sensory deficit. Reflexes normal. LABS, X-RAYS, AND EKG EKG: No acute process. No acute ischemia. Normal EKG. Normal sinus rhythm. Rate: 64. Normal P waves. Normal BALJEET. Normal QRS complex. Normal axis. Normal ST and T waves, QT and QTc. " abnormal axis due to lead placement". The study has been interpreted contemporaneously. The study has been independently viewed by me. The EKG appears to be a good tracing. Laboratory Tests: CBC w Diff: (DALLIN: 05/15/2016 23:10) ( MsgRcvd 05/15/2016 23:22) Final results Test Result Flag Units (Reference) WHITE BLOOD COUNT 10.3 K/uL (4.5-11.5) RED BLOOD COUNT 5.04 M/uL (4.50-5.90) HEMOGLOBIN 15.2 gm/dL (13.5-17.5) HEMATOCRIT 45.3 % (41.0-53.0) MEAN CELL VOLUME 90 fL (80-100) MEAN CORPUSCULAR HGB 30 pg (26-34) MEAN CORPUSCULAR HGB CONC 34 g/dL (31-37) RED CELL DISTRIBUTION WIDTH 13.2 % (11.6-14.8) PLATELET COUNT 357 K/uL (150-400) LYMPH % 25.9 % (25-40) MONO % 5.3 % (3-14) GRANULOCYTE % 68.8 Urine Drug Screen: (DALLIN: 05/15/2016 22:20) ( MsgRcvd 05/15/2016 23:05) Final results Test Result Flag Units (Reference) AMPHETAMINE/METHAMPHETAMINE POSITIVE H (NEGATIVE) BARBITURATE NEGATIVE (NEGATIVE) BENZODIAZEPINE NEGATIVE (NEGATIVE) CANNABINOID POSITIVE H (NEGATIVE) COCAINE NEGATIVE (NEGATIVE) ECSTASY NEGATIVE (NEGATIVE) METHADONE NEGATIVE (NEGATIVE) OPIATE POSITIVE H (NEGATIVE) The urine drug screen is a qualitative screening test fordrug overdose and abuse. All screen results should beconsidered as presumptive.Drugs screened for are as follows:BenzodiazepinesCocaineAmphetamines/MetamphetaminesTHC (Tetrahydrocannabinol)OpiatesBarbituratesEcstasyMethadonePositive results are unconfirmed. For confirmation, notifythe lab for the specimen to be sent to the reference lab.All confirmations must be performed by a differentmethodology.The ingestion of natural herbal and plant productscontaining Ephedra/Ephedra metabolites can produce in urineone or more substances capable of cross reacting withamphetamine/methamphetamine immunoassays. These testsprovide a preliminary result only. A more specificalternative chemical method must be used to obtain aconfirmed analytical result. . PROGRESS AND PROCEDURES Course of Care: The patient is a pleasant 30-year-old male with past medical history significant for substance abuse presenting for evaluation of syncopal-like event. The patient likely had postural hypotension Patient likely with mild dehydration however has self treated with by mouth hydration. At this time patient will be evaluated with the [place] syncope rule. Patient is agreeable to the treatment and plan. Of note, they also are heavily perseverating about the lesions noted on her skin. Patient describes fomites john s also having formication. In light of patient's reported methamphetamine abuse, this is likely hallucinations from the substance abuse. No evidence of infection of the wounds at this time. Expressed my concern for the wound healing and need for follow-up and cessation of methamphetamine use. Patient apparently was not pleased with this explanation and became somewhat upset. Head offered patient other alternatives for treatment including antibiotic ointment which she was agreeable to. I had also had the lights turned off for evaluation of the patient's reported parasites coming out of his skin. Patient was evaluated at a later time and found to have no parasites. The cup of "parasites" that were "picked off skin "was noted to be scabs and plant debris. No concern for parasitic type infection at this time. [place] syncope rules noted to be negative. Of note, patient was also extremely hesitant about having blood drawn with needle. Had to talk to patient in regards to blood draws. traffic technician and also been present and had to executive business coach patient through the blood draw. No complications noted. Workup is unremarkable. I discussed the patient workup, diagnosis, home care, follow-up, and return precautions. All questions answered. The patient expressed understanding of these instructions and was agreeable to them. Disposition: Discharged. Condition: good. CLINICAL IMPRESSION Near syncope .12 lead EKG performed. (acute). 05/15/2016 20:56 BP: 131/72. HR: 73. RR: 16. O2 saturation: 97%. Temp: 98.3 F. Pain level now: 5/10. Blood pressure normal. Oxygen saturation normal. Urticaria (subacute). Substance abuse- methamphetamines. INSTRUCTIONS Warnings: GENERAL WARNINGS: Return or contact your physician immediately if your condition worsens or changes unexpectedly, if not improving as expected, or if other problems arise. SPECIFICALLY, return if you develop chest pain, fluttering sensation in your chest, lightheadedness, fainting, numbness, weakness or extreme fatigue. redness. OTC Medications: Bacitracin ointment (available over the counter): apply to affected area twice daily as needed for crusting, weeping or redness until symptoms resolve. Dispense one (1) oz tube. Two refills. Follow-up: Return to the emergency department as needed. Follow up with your doctor in three days. Reason for referral: recheck today's concerns. Summary of care provided to patient via paper. Screening today revealed the patient's blood pressure to be in the normal range. The patient should follow up with a primary care provider for blood pressure management. Understanding of the discharge instructions verbalized by patient. Follow-up with: [facility], , , [address], [place], [address] Follow up. Reason for referral: contact if you do not have a primary care doctor. Summary of care provided to patient via paper. (Electronically signed by Sal Kam Dr. 05/19/2016 11:49)
--- NOTE | 2016-05-15 23:26 | ED NURSING NOTES ---
Clinical Report - Nurses [facility] [address] [place] [address] 05/15/2016 20:48 Patient: CECE ARMANDO TRIAGE Triage time 20:55 May 15 2016. Acuity: LEVEL 3. Chief Complaint: LIGHT HEADED and NEAR-SYNCOPE. Alert. JENNY COMA SCORE: [place] Coma Scale: 15- eyes open spontaneously (4); best verbal response- oriented x 4 (5); best motor response- obeys commands (6). --21:08 Noel Varela R.N. 20:56 05/15/16. BP: 131/72. HR: 73. RR: 16. O2 saturation: 97% on room air. Temp: 98.3 F (oral). Pain level now: 5/10. Additional comments: Various open sores. --21:08 Noel Varela R.N. Weight: 72.5 kg stated. Height/Length: 68 inches Per Patient. BMI: 24.3. --20:57 Noel Varela R.N. Medications None. --20:58 Noel Varela R.N. Allergies No Known Drug Allergy. --20:58 Noel Varela R.N. Medication/allergy information source: the patient. --21:08 Noel Varela R.N. History Arrived by EMS. Historian: patient. Accompanied by friend. Primary physician (none). ( Near Syncope. Pt states that he stood up too fast and got light-headed. He then drank some water and felt better. Pt admits to doing methamphetamines and has open wound on his torso that he admits to picking at and states that he has two different bug that infest his body 9scabies and a white cone-shaped bug). Seen here yesterday for the bugs.). This started just prior to arrival about 45 minutes ago. Treatment DIRECTOR PHONE: (drank some water). PAST MEDICAL HX: Immunizations: up-to-date. SOCIAL HX: Heavy tobacco smoker- less than 1 pack per day. History of drug use: heroin, methamphetamines, marijuana. No alcohol use. No infectious disease exposure. ABUSE ASSESSMENT: No report of abuse. FALL RISK ASSESSMENT: Fall risk assessment completed. No fall risk identified. NUTRITIONAL RISK ASSESSMENT: The nutritional risk assessment revealed no deficiencies. FUNCTIONAL ASSESSMENT: Functional assessment: no impairments noted. LEARNING NEEDS ASSESSMENT: The learning needs assessment revealed no barriers. SKIN INTEGRITY ASSESSMENT: Skin integrity risk assessment completed. No skin integrity risk identified. --21: Noel Varela R.N. PROBLEMS: Substance Abuse. Impetigo. MRSA Infection. Lice. Paronychia. Tetanus Status. --21: Noel Varela R.N. ADDITIONAL SURGERIES: Left middle finger. Right forearm . --21:02 Noel Varela R.N. Interventions ID band on patient. To treatment room. --21: Noel Varela R.N. PHYSICAL ASSESSMENT To room via stretcher. GENERAL / NEURO / PSYCH: Oriented X 4. Alert. Speech within normal limits. HEENT: No facial asymmetry noted. RESPIRATORY: Respirations not labored. CVS: Normal sinus rhythm noted. GI / : Abdomen soft and nontender. SKIN: Skin is warm and dry. ( multiple open sores on torso and states one on his (R) foot). --21:09 Noel Varela R.N. NURSING PROGRESS NOTES Patient gowned. Reassurance given to the patient. Patient identifiers checked. Call light placed in reach. Side rails up x 1. Bed placed in lowest position. Brakes of bed on. Patient ready for evaluation- chart flagged and ED physician notified. --21: Noel Varela R.N. EKG time: (2118 PM). EKG was ordered, performed by a tech and shown to the ED physician. --21:20 Kristin Mendenhall 22:25 05/15/16. Patient ID band checked for patient name, birthdate and medical record number: patient confirmed. Instructions provided to collect clean catch urine and patient verbalized understanding. Clean catch urine collected with return of yellow-colored clear urine; odor is normal; sample sent to lab for urinalysis, culture and drug screen. Specimen labeled in the presence of the patient. --22:28 Noel Varela R.N. DISPOSITION / DISCHARGE 23:55 05/15/16. BP: 120/57. HR: 75. RR: 16. O2 saturation: 97% on room air. Temp: 98.7 F (oral). Pain level now: 0/10. --03:05 Noel Varela R.N. Departure time: 0001 May 16 2016. --03:05 Noel Varela R.N. 00:01. Condition at departure: unchanged. Ability to learn limited by poor cooperation. Discharge instructions provided and reviewed with the patient. Reviewed medication(s) (pt given 3 pkts of Bacitracin ointment and advised to fill the previous prescription he was given last night.). Reviewed referral to family practice for followup. Reviewed need to stop smoking (stop doing meth, and opioids.). Written instructions provided in [place]ian. The patient appears to be uncooperative (Pt insists that both he and his girlfriend have 7 different species of parasites crawling out of various orafices and that the general public should be made aware of the problem(s).). He stated is leaving the ED (Pt and friend don't think that he is being treated appropriately for their parasites.). Patient refused to sign form prior to leaving. He left the Emergency Department ambulatory and via private vehicle. The patient was discharged home and accompanied by macerator operator. He left the Emergency Department ambulatory and via private vehicle. Returned Item Clerk driving. --03:22 Noel Varela R.N. Locked/Released at 05/16/2016 3:23 by Noel Varela R.N.
--- NOTE | 2016-05-15 23:26 | ED ORDER SUMMARY ---
..... Patient: CECE ARMANDO OrderSheet [facility] VisitID: [id number] [place] [address] 30y, M Registration Date/Time: 05/15/2016 ORDER SHEET Weight: 72.5 kg (stated) Allergies: No Known Drug Allergy GENERAL ORDERS: Golf Ball Cover Treater (Continuous) (possible near syncope) (20:56 05/15/2016 Molly Ken) (Ack 20:59 CHagerty ER Data Analytics Chief Scientist) (21:38 Timur R.N.) CBC w Diff Urgent (20:56 05/15/2016 Molly Ken) (Ack 20:59 Dary ER Data Analytics Chief Scientist) (21:38 Timur Chen.N.) CMP Urgent (20:56 05/15/2016 Molly Ken) (Ack 20:59 Dary ER Data Analytics Chief Scientist) (21:47 Timur SandovalN.) EKG - ER Stat (20:56 05/15/2016 Molly Ken) (Ack 20:59 CHagerty ER Data Analytics Chief Scientist) (21:21 Danette) Pulse oximeter (20:56 05/15/2016 Molly Kne) (Ack 20:59 CHageda ER Data Analytics Chief Scientist) (21:38 Timur R.N.) Urine Drug Screen Urgent (21:31 05/15/2016 Molly Ken) (Ack 21:34 CHagerty ER Data Analytics Chief Scientist) (22:28 Timur R.N.) MEDICATION ORDERS: Toradol IM 60 mg (NOW) (21:32 05/15/2016 Molly Ken) (Cancelled: Patient Refusal--Medication drawn up, but pt states he hates [id number] Timur R.N.) IV FLUIDS: ORDER SHEET NOTES: [Electronically signed by Noel Varela R.N. (03:23 05/16/2016)] [Electronically signed by Sal Kam Dr. (11:49 05/19/2016)] [Electronically locked/signed by Noel Varela R.N. (03:23 05/16/2016)]
--- NOTE | 2016-05-15 23:26 | ED NURSING NOTES ---
Clinical Report - Nurses [facility] [address] [place] [address] 05/15/2016 20:48 Patient: CECE ARMANDO TRIAGE Triage time 20:55 May 15 2016. Acuity: LEVEL 3. Chief Complaint: LIGHT HEADED and NEAR-SYNCOPE. Alert. JENNY COMA SCORE: [place] Coma Scale: 15- eyes open spontaneously (4); best verbal response- oriented x 4 (5); best motor response- obeys commands (6). --21:08 Noel Varela R.N. 20:56 05/15/16. BP: 131/72. HR: 73. RR: 16. O2 saturation: 97% on room air. Temp: 98.3 F (oral). Pain level now: 5/10. Additional comments: Various open sores. --21:08 Noel Varela R.N. Weight: 72.5 kg stated. Height/Length: 68 inches Per Patient. BMI: 24.3. --20:57 Noel Varela R.N. Medications None. --20:58 Noel Varela R.N. Allergies No Known Drug Allergy. --20:58 Noel Varela R.N. Medication/allergy information source: the patient. --21:08 Noel Varela R.N. History Arrived by EMS. Historian: patient. Accompanied by friend. Primary physician (none). ( Near Syncope. Pt states that he stood up too fast and got light-headed. He then drank some water and felt better. Pt admits to doing methamphetamines and has open wound on his torso that he admits to picking at and states that he has two different bug that infest his body 9scabies and a white cone-shaped bug). Seen here yesterday for the bugs.). This started just prior to arrival about 45 minutes ago. Treatment DISPENSING OPERATOR: (drank some water). PAST MEDICAL HX: Immunizations: up-to-date. SOCIAL HX: Heavy tobacco smoker- less than 1 pack per day. History of drug use: heroin, methamphetamines, marijuana. No alcohol use. No infectious disease exposure. ABUSE ASSESSMENT: No report of abuse. FALL RISK ASSESSMENT: Fall risk assessment completed. No fall risk identified. NUTRITIONAL RISK ASSESSMENT: The nutritional risk assessment revealed no deficiencies. FUNCTIONAL ASSESSMENT: Functional assessment: no impairments noted. LEARNING NEEDS ASSESSMENT: The learning needs assessment revealed no barriers. SKIN INTEGRITY ASSESSMENT: Skin integrity risk assessment completed. No skin integrity risk identified. --21: Noel Varela R.N. PROBLEMS: Substance Abuse. Impetigo. MRSA Infection. Lice. Paronychia. Tetanus Status. --21: Noel Varela R.N. ADDITIONAL SURGERIES: Left middle finger. Right forearm . --21:02 Noel Varela R.N. Interventions ID band on patient. To treatment room. --21: Noel Varela R.N. PHYSICAL ASSESSMENT To room via stretcher. GENERAL / NEURO / PSYCH: Oriented X 4. Alert. Speech within normal limits. HEENT: No facial asymmetry noted. RESPIRATORY: Respirations not labored. CVS: Normal sinus rhythm noted. GI / : Abdomen soft and nontender. SKIN: Skin is warm and dry. ( multiple open sores on torso and states one on his (R) foot). --21:09 Noel Varela R.N. NURSING PROGRESS NOTES Patient gowned. Reassurance given to the patient. Patient identifiers checked. Call light placed in reach. Side rails up x 1. Bed placed in lowest position. Brakes of bed on. Patient ready for evaluation- chart flagged and ED physician notified. --21: Noel Varela R.N. EKG time: (2118 PM). EKG was ordered, performed by a tech and shown to the ED physician. --21:20 Kristin Mendenhall 22:25 05/15/16. Patient ID band checked for patient name, birthdate and medical record number: patient confirmed. Instructions provided to collect clean catch urine and patient verbalized understanding. Clean catch urine collected with return of yellow-colored clear urine; odor is normal; sample sent to lab for urinalysis, culture and drug screen. Specimen labeled in the presence of the patient. --22:28 Noel Varela R.N. DISPOSITION / DISCHARGE 23:55 05/15/16. BP: 120/57. HR: 75. RR: 16. O2 saturation: 97% on room air. Temp: 98.7 F (oral). Pain level now: 0/10. --03:05 Noel Varela R.N. Departure time: 0001 May 16 2016. --03:05 Noel Varela R.N. 00:01. Condition at departure: unchanged. Ability to learn limited by poor cooperation. Discharge instructions provided and reviewed with the patient. Reviewed medication(s) (pt given 3 pkts of Bacitracin ointment and advised to fill the previous prescription he was given last night.). Reviewed referral to family practice for followup. Reviewed need to stop smoking (stop doing meth, and opioids.). Written instructions provided in Macedonian. The patient appears to be uncooperative (Pt insists that both he and his girlfriend have 7 different species of parasites crawling out of various orafices and that the general public should be made aware of the problem(s).). He stated is leaving the ED (Pt and friend don't think that he is being treated appropriately for their parasites.). Patient refused to sign form prior to leaving. He left the Emergency Department ambulatory and via private vehicle. The patient was discharged home and accompanied by dealer accounts investigator. He left the Emergency Department ambulatory and via private vehicle. Biomedical Photographer driving. --03:22 Noel Varela R.N. Locked/Released at 05/16/2016 3:23 by Noel Varela R.N.
--- NOTE | 2016-05-15 23:26 | ED ORDER SUMMARY ---
..... Patient: CECE ARMANDO OrderSheet [facility] VisitID: [id number] [place] [address] 30y, M Registration Date/Time: 05/15/2016 ORDER SHEET Weight: 72.5 kg (stated) Allergies: No Known Drug Allergy GENERAL ORDERS: Robotic Maintenance Technician (Continuous) (possible near syncope) (20:56 05/15/2016 Molly Ken) (Ack 20:59 CHagerty ER Immigration Attorney) (21:38 Timur R.N.) CBC w Diff Urgent (20:56 05/15/2016 Molly Ken) (Ack 20:59 Dary ER Immigration Attorney) (21:38 Timur Chen.N.) CMP Urgent (20:56 05/15/2016 Molly Ken) (Ack 20:59 Dary ER Immigration Attorney) (21:47 Timur SandovalN.) EKG - ER Stat (20:56 05/15/2016 Molly Ken) (Ack 20:59 CHagerty ER Immigration Attorney) (21:21 Danette) Pulse oximeter (20:56 05/15/2016 Molly Ken) (Ack 20:59 CHageda ER Immigration Attorney) (21:38 Timur R.N.) Urine Drug Screen Urgent (21:31 05/15/2016 Molly Ken) (Ack 21:34 CHagerty ER Immigration Attorney) (22:28 Timur R.N.) MEDICATION ORDERS: Toradol IM 60 mg (NOW) (21:32 05/15/2016 Molly Ken) (Cancelled: Patient Refusal--Medication drawn up, but pt states he hates :48 Timur R.N.) IV FLUIDS: ORDER SHEET NOTES: [Electronically signed by Noel Varela R.N. (03:23 05/16/2016)] [Electronically signed by Sal Kam Dr. (11:49 05/19/2016)] [Electronically locked/signed by Noel Varela R.N. (03:23 05/16/2016)]
--- NOTE | 2016-05-15 23:26 | ED CLINICAL REPORT ---
Clinical Report - Physicians/Mid Levels [facility] [address] [place] [address] 05/15/2016 20:48 Patient: CECE ARMANDO Arrived- By private vehicle. Historian- patient. HISTORY OF PRESENT ILLNESS Is no longer unconscious. He has recovered. Chief Complaint: NEAR-SYNCOPE. It was abrupt in onset and has been intermittent. Patient was last known well (prior to onset of symptoms). This occurred today. The patient had preceding symptoms of light-headedness. The patient felt faint. No loss of consciousness. At time of event, he had just stood up. The episode was brief and lasted minutes. Injuries noted. (Patient reports no shortness of breath. reports having rash to the body. Patient reports that this is been going on for years. Patient states that he has been following up with Dr. Limon has not been told exactly what they are. Patient reports that he's been trying to treat them as appropriate and dirt did however they have not healed. Patient reports that there are "bugs coming out of them. "Patient reports a day, out at night. Patient had brought with him a bottleof the bugs that he is reported that are coming out of his skin.). Similar symptoms previously: Recent medical care: The patient was seen recently by a health care provider. REVIEW OF SYSTEMS No headache, dizziness, weakness, chest pain or joint pain. He has had skin rash. All systems otherwise negative, except as recorded above. PAST HISTORY See nurses notes. Medications: None. Allergies: No Known Drug Allergy. SOCIAL HISTORY Smoker- current status unknown. History of drug use: methamphetamines. No alcohol use. ADDITIONAL NOTES The nursing notes have been reviewed. PHYSICAL EXAM Vital Signs: 05/15/2016 20:56 BP: 131/72. HR: 73. RR: 16. O2 saturation: 97%. Temp: 98.3 F. Pain level now: 5/10. Blood pressure normal. Oxygen saturation normal. Appearance: Alert. No acute distress. Eyes: Pupils equal, round and reactive to light. No nystagmus. Extraocular movements normal. ENT: Normal ENT inspection. TM's normal. Moist mucous membranes. Pharynx normal. Neck: Normal inspection. Neck supple. CVS: Normal heart rate and rhythm. Heart sounds normal. Pulses normal. Respiratory: No respiratory distress. Breath sounds normal. Abdomen: Soft and nontender. No organomegaly. Back: Normal inspection. Skin: (excoriated areas of skin to the areas that are easily reached with hands. No lesions noted to the middle of the back. Wounds are in multiple stages of healing. No erythema. No crepitus. Appropriate tender.). Extremities: Extremities exhibit normal ROM. No lower extremity edema. Neuro: Alert. Oriented X 3. Mood/affect normal. Speech normal. Cranial nerves normal (as tested). No cerebellar findings. No motor deficit. No sensory deficit. Reflexes normal. LABS, X-RAYS, AND EKG EKG: No acute process. No acute ischemia. Normal EKG. Normal sinus rhythm. Rate: 64. Normal P waves. Normal BALJEET. Normal QRS complex. Normal axis. Normal ST and T waves, QT and QTc. " abnormal axis due to lead placement". The study has been interpreted contemporaneously. The study has been independently viewed by me. The EKG appears to be a good tracing. Laboratory Tests: CBC w Diff: (DALLIN: 05/15/2016 23:10) ( MsgRcvd 05/15/2016 23:22) Final results Test Result Flag Units (Reference) WHITE BLOOD COUNT 10.3 K/uL (4.5-11.5) RED BLOOD COUNT 5.04 M/uL (4.50-5.90) HEMOGLOBIN 15.2 gm/dL (13.5-17.5) HEMATOCRIT 45.3 % (41.0-53.0) MEAN CELL VOLUME 90 fL (80-100) MEAN CORPUSCULAR HGB 30 pg (26-34) MEAN CORPUSCULAR HGB CONC 34 g/dL (31-37) RED CELL DISTRIBUTION WIDTH 13.2 % (11.6-14.8) PLATELET COUNT 357 K/uL (150-400) LYMPH % 25.9 % (25-40) MONO % 5.3 % (3-14) GRANULOCYTE % 68.8 Urine Drug Screen: (DALLIN: 05/15/2016 22:20) ( MsgRcvd 05/15/2016 23:05) Final results Test Result Flag Units (Reference) AMPHETAMINE/METHAMPHETAMINE POSITIVE H (NEGATIVE) BARBITURATE NEGATIVE (NEGATIVE) BENZODIAZEPINE NEGATIVE (NEGATIVE) CANNABINOID POSITIVE H (NEGATIVE) COCAINE NEGATIVE (NEGATIVE) ECSTASY NEGATIVE (NEGATIVE) METHADONE NEGATIVE (NEGATIVE) OPIATE POSITIVE H (NEGATIVE) The urine drug screen is a qualitative screening test fordrug overdose and abuse. All screen results should beconsidered as presumptive.Drugs screened for are as follows:BenzodiazepinesCocaineAmphetamines/MetamphetaminesTHC (Tetrahydrocannabinol)OpiatesBarbituratesEcstasyMethadonePositive results are unconfirmed. For confirmation, notifythe lab for the specimen to be sent to the reference lab.All confirmations must be performed by a differentmethodology.The ingestion of natural herbal and plant productscontaining Ephedra/Ephedra metabolites can produce in urineone or more substances capable of cross reacting withamphetamine/methamphetamine immunoassays. These testsprovide a preliminary result only. A more specificalternative chemical method must be used to obtain aconfirmed analytical result. . PROGRESS AND PROCEDURES Course of Care: The patient is a pleasant 30-year-old male with past medical history significant for substance abuse presenting for evaluation of syncopal-like event. The patient likely had postural hypotension Patient likely with mild dehydration however has self treated with by mouth hydration. At this time patient will be evaluated with the [place] syncope rule. Patient is agreeable to the treatment and plan. Of note, they also are heavily perseverating about the lesions noted on her skin. Patient describes fomites john s also having formication. In light of patient's reported methamphetamine abuse, this is likely hallucinations from the substance abuse. No evidence of infection of the wounds at this time. Expressed my concern for the wound healing and need for follow-up and cessation of methamphetamine use. Patient apparently was not pleased with this explanation and became somewhat upset. Head offered patient other alternatives for treatment including antibiotic ointment which she was agreeable to. I had also had the lights turned off for evaluation of the patient's reported parasites coming out of his skin. Patient was evaluated at a later time and found to have no parasites. The cup of "parasites" that were "picked off skin "was noted to be scabs and plant debris. No concern for parasitic type infection at this time. [place] syncope rules noted to be negative. Of note, patient was also extremely hesitant about having blood drawn with needle. Had to talk to patient in regards to blood draws. 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 No complications noted. Workup is unremarkable. I discussed the patient workup, diagnosis, home care, follow-up, and return precautions. All questions answered. The patient expressed understanding of these instructions and was agreeable to them. Disposition: Discharged. Condition: good. CLINICAL IMPRESSION Near syncope .12 lead EKG performed. (acute). 05/15/2016 20:56 BP: 131/72. HR: 73. RR: 16. O2 saturation: 97%. Temp: 98.3 F. Pain level now: 5/10. Blood pressure normal. Oxygen saturation normal. Urticaria (subacute). Substance abuse- methamphetamines. INSTRUCTIONS Warnings: GENERAL WARNINGS: Return or contact your physician immediately if your condition worsens or changes unexpectedly, if not improving as expected, or if other problems arise. SPECIFICALLY, return if you develop chest pain, fluttering sensation in your chest, lightheadedness, fainting, numbness, weakness or extreme fatigue. redness. OTC Medications: Bacitracin ointment (available over the counter): apply to affected area twice daily as needed for crusting, weeping or redness until symptoms resolve. Dispense one (1) oz tube. Two refills. Follow-up: Return to the emergency department as needed. Follow up with your doctor in three days. Reason for referral: recheck today's concerns. Summary of care provided to patient via paper. Screening today revealed the patient's blood pressure to be in the normal range. The patient should follow up with a primary care provider for blood pressure management. Understanding of the discharge instructions verbalized by patient. Follow-up with: [facility], , , [address], [place], [address] Follow up. Reason for referral: contact if you do not have a primary care doctor. Summary of care provided to patient via paper. (Electronically signed by Sal Kam Dr. 05/19/2016 11:49)
--- NOTE | 2016-05-19 11:49 | ED DISCHARGE INSTRUCTIONS ---
Patient: CECE ARMANDO General Instructions [facility] VisitID: [id number] [address] [place] [address] 30y, M Registration Date/Time: 05/15/2016 Near syncope .12 lead EKG performed. (acute). 05/15/2016 20:56 BP: 131/72. HR: 73. RR: 16. O2 saturation: 97%. Temp: 98.3 F. Pain level now: 5/10. Blood pressure normal. Oxygen saturation normal. Urticaria (subacute). Substance abuse- methamphetamines. INSTRUCTIONS Warnings: GENERAL WARNINGS: Return or contact your physician immediately if your condition worsens or changes unexpectedly, if not improving as expected, or if other problems arise. SPECIFICALLY, return if you develop chest pain, fluttering sensation in your chest, lightheadedness, fainting, numbness, weakness or extreme fatigue. redness. OTC Medications: Bacitracin ointment (available over the counter): apply to affected area twice daily as needed for crusting, weeping or redness until symptoms resolve. Dispense one (1) oz tube. Two refills. Follow-up: Return to the emergency department as needed. Follow up with your doctor in three days. Reason for referral: recheck today's concerns. Summary of care provided to patient via paper. Screening today revealed the patient's blood pressure to be in the normal range. The patient should follow up with a primary care provider for blood pressure management. Understanding of the discharge instructions verbalized by patient. Follow-up with: [facility], , , [address], [place], [address] Follow up. Reason for referral: contact if you do not have a primary care doctor. Summary of care provided to patient via paper. ADDITIONAL INFORMATION Near-Fainting:Uncertain Cause Fainting (syncope) is a temporary loss of consciousness ("passing out"). It occurs when blood flow to the brain is reduced. Near-fainting ("near-syncope") is like fainting, but you do not fully "pass out." The common minor causes of near fainting include sudden fear, pain, emotional stress, overexertion, or quickly standing up after sitting or lying for a long time. The more serious causes for near fainting are due to either a very slow or very fast heart beat, dehydration, anemia, blood loss, problems related to the heart, or taking too much high blood pressure medicine. The exact cause of your episode is not certain. More tests may be required. Therefore, it is important that you follow up with your doctor as advised. Home Care: 1) Rest today. Resume your normal activities as soon as you are feeling back to normal. 2) If you become light-headed or dizzy, lie down right away or sit with your head between your knees. 3) Because we do not know the exact cause of your near fainting spell, another spell could occur without warning. Therefore, do not drive a car or use dangerous equipment. D o not take a bath alone (use a shower instead). Do not swim alone. You can resume these activities when your doctor says that you are no longer in danger of having a near fainting spell. 4) Stay well hydrated by drinking enough fluid each day. Follow Up with your doctor as instructed. Get Prompt Medical Attention if any of the following occur: -- Another fainting spell occurs, and it is not explained by the common causes listed above -- Chest, arm, neck, jaw, back or abdominal pain -- Shortness of breath -- Weakness, tingling or numbness in one side of the face, one arm or leg -- Slurred speech, confusion, trouble walking or seeing -- Seizure -- Blood in vomit, stools (black or red color) -- (In women) unexpected vaginal bleeding Dermatitis (Non-Specific) Dermatitis is an inflammation of the skin. The exact cause of your rash is not certain. However, this rash does not appear to be an infection or contagious illness. Taking care of the rash at home should help relieve your symptoms. Home Care: Keep the areas of rash clean by washing it daily. This also helps to keep the skin moist. Use a neutral pH soap such as Dove or Lever 2000. Apply a moisturizing lotion after bathing to prevent dry skin. Avoid skin irritants (wool or silk clothing, grease, oils, some medicines, harsh soaps, and detergents). Wear absorbent, soft fabrics next to the skin rather than rough or scratchy materials. Unless another medicine was prescribed, you may use Hydrocortisone cream (which you can get without a prescription) to reduce the inflammation. Follow Up: Make an appointment with your doctor in the next 1 to 2 weeks if your symptoms do not improve with the above measures. Get Prompt Medical Attention if any of the following occur: Increasing area of redness or pain in the skin Yellow crusts or drainage from the rash Joint pain New rash that appears in other areas of the body Fever of 100.4F (38C) or higher, or as directed by your healthcare provider Drug Abuse Use and abuse of such drugs as marijuana, amphetamines (speed, crank), cocaine, heroin or prescription pain medicines (Vicodin, codeine), sedatives and sleeping pills (Valium, Klonopin), PCP, mescaline and LSD may lead to addiction or dependence. Once this occurs, you are at greater risk for any of the following: Craving for the drug and unable to stop using the drug even though you think you want to stop (psychological dependence) Drug withdrawal symptoms if you stop taking the drug (physical dependence) Loss of your job or your family Arrest, conviction and mcc sentence for possession of an illegal substance or for driving under the influence of such a substance Accidental injuries to yourself or others while you are under the influence of the drug (in a car or at home). HIV infection (much greater risk if you use IV drugs) Other sexually transmitted diseases (herpes, chlamydia, gonorrhea and others) Severe and fatal infection of the heart valves (if you use IV drugs) Stroke, heart attack, hepatitis B or C, kidney failure from overdose Home Care: Admit you have a drug problem. Ask for help from your family and close friends. Seek professional help. This could be in the form of individual psychotherapy or counseling or an outpatient, inpatient, or residential drug treatment program. Join a self-help group for drug abuse. Avoid friends who abuse drugs themselves or tempt you to continue abusing drugs. Eat a balanced diet and begin a regular exercise program. Follow Up with your doctor or as advised by our staff. Contact one of the resources below for help. National [place] on Alcoholism and Drug Dependence www.ncadd.org 595-607-YKUL Narcotics Anonymous www.na.org 761-493-0249 National Alcohol and Substance Abuse Information Center (for referral to treatment programs) www.[employer] 603-174-6688 Get Prompt Medical Attention if any of the following occur: Agitation, anxiety, unable to sleep Unintended weight loss (more than 10 to 15 pounds over 3 months) Seizure Chest pain Fever of 100.4F (38C) or higher, or as directed by your healthcare provider Excess drowsiness or inability to be awakened Shortness of breath Slow breathing under 8 breaths per minute Cough with colored sputum Redness, swelling or tenderness at an injection site You have been given the following additional information: Near Syncope, Unknown Dermatitis, Non-Specific Drug Abuse (Electronically signed by Sal Kam Dr. 05/19/2016 11:49)
--- NOTE | 2016-05-19 11:49 | ED MAR SUMMARY ---
..... Medication Administration Record [facility] [address] [place], [place] [id number] Patient: CECE ARMANDO Johnson Visit ID: [id number] 30y, M Weight: 72.5 kg Height/Length: 68 in BMI: 24.3 ALLERGIES: No Known Drug Allergy
--- NOTE | 2016-05-19 11:49 | ED DISCHARGE INSTRUCTIONS ---
Patient: CECE ARMANDO General Instructions [facility] VisitID: [id number] [address] [address] 30y, M Registration Date/Time: 05/15/2016 Near syncope .12 lead EKG performed. (acute). 05/15/2016 20:56 BP: 131/72. HR: 73. RR: 16. O2 saturation: 97%. Temp: 98.3 F. Pain level now: 5/10. Blood pressure normal. Oxygen saturation normal. Urticaria (subacute). Substance abuse- methamphetamines. INSTRUCTIONS Warnings: GENERAL WARNINGS: Return or contact your physician immediately if your condition worsens or changes unexpectedly, if not improving as expected, or if other problems arise. SPECIFICALLY, return if you develop chest pain, fluttering sensation in your chest, lightheadedness, fainting, numbness, weakness or extreme fatigue. redness. OTC Medications: Bacitracin ointment (available over the counter): apply to affected area twice daily as needed for crusting, weeping or redness until symptoms resolve. Dispense one (1) oz tube. Two refills. Follow-up: Return to the emergency department as needed. Follow up with your doctor in three days. Reason for referral: recheck today's concerns. Summary of care provided to patient via paper. Screening today revealed the patient's blood pressure to be in the normal range. The patient should follow up with a primary care provider for blood pressure management. Understanding of the discharge instructions verbalized by patient. Follow-up with: [facility], , , [address], [place], [address] Follow up. Reason for referral: contact if you do not have a primary care doctor. Summary of care provided to patient via paper. ADDITIONAL INFORMATION Near-Fainting:Uncertain Cause Fainting (syncope) is a temporary loss of consciousness ("passing out"). It occurs when blood flow to the brain is reduced. Near-fainting ("near-syncope") is like fainting, but you do not fully "pass out." The common minor causes of near fainting include sudden fear, pain, emotional stress, overexertion, or quickly standing up after sitting or lying for a long time. The more serious causes for near fainting are due to either a very slow or very fast heart beat, dehydration, anemia, blood loss, problems related to the heart, or taking too much high blood pressure medicine. The exact cause of your episode is not certain. More tests may be required. Therefore, it is important that you follow up with your doctor as advised. Home Care: 1) Rest today. Resume your normal activities as soon as you are feeling back to normal. 2) If you become light-headed or dizzy, lie down right away or sit with your head between your knees. 3) Because we do not know the exact cause of your near fainting spell, another spell could occur without warning. Therefore, do not drive a car or use dangerous equipment. D o not take a bath alone (use a shower instead). Do not swim alone. You can resume these activities when your doctor says that you are no longer in danger of having a near fainting spell. 4) Stay well hydrated by drinking enough fluid each day. Follow Up with your doctor as instructed. Get Prompt Medical Attention if any of the following occur: -- Another fainting spell occurs, and it is not explained by the common causes listed above -- Chest, arm, neck, jaw, back or abdominal pain -- Shortness of breath -- Weakness, tingling or numbness in one side of the face, one arm or leg -- Slurred speech, confusion, trouble walking or seeing -- Seizure -- Blood in vomit, stools (black or red color) -- (In women) unexpected vaginal bleeding Dermatitis (Non-Specific) Dermatitis is an inflammation of the skin. The exact cause of your rash is not certain. However, this rash does not appear to be an infection or contagious illness. Taking care of the rash at home should help relieve your symptoms. Home Care: Keep the areas of rash clean by washing it daily. This also helps to keep the skin moist. Use a neutral pH soap such as Dove or Lever 2000. Apply a moisturizing lotion after bathing to prevent dry skin. Avoid skin irritants (wool or silk clothing, grease, oils, some medicines, harsh soaps, and detergents). Wear absorbent, soft fabrics next to the skin rather than rough or scratchy materials. Unless another medicine was prescribed, you may use Hydrocortisone cream (which you can get without a prescription) to reduce the inflammation. Follow Up: Make an appointment with your doctor in the next 1 to 2 weeks if your symptoms do not improve with the above measures. Get Prompt Medical Attention if any of the following occur: Increasing area of redness or pain in the skin Yellow crusts or drainage from the rash Joint pain New rash that appears in other areas of the body Fever of 100.4F (38C) or higher, or as directed by your healthcare provider Drug Abuse Use and abuse of such drugs as marijuana, amphetamines (speed, crank), cocaine, heroin or prescription pain medicines (Vicodin, codeine), sedatives and sleeping pills (Valium, Klonopin), PCP, mescaline and LSD may lead to addiction or dependence. Once this occurs, you are at greater risk for any of the following: Craving for the drug and unable to stop using the drug even though you think you want to stop (psychological dependence) Drug withdrawal symptoms if you stop taking the drug (physical dependence) Loss of your job or your family Arrest, conviction and retirement sentence for possession of an illegal substance or for driving under the influence of such a substance Accidental injuries to yourself or others while you are under the influence of the drug (in a car or at home). HIV infection (much greater risk if you use IV drugs) Other sexually transmitted diseases (herpes, chlamydia, gonorrhea and others) Severe and fatal infection of the heart valves (if you use IV drugs) Stroke, heart attack, hepatitis B or C, kidney failure from overdose Home Care: Admit you have a drug problem. Ask for help from your family and close friends. Seek professional help. This could be in the form of individual psychotherapy or counseling or an outpatient, inpatient, or residential drug treatment program. Join a self-help group for drug abuse. Avoid friends who abuse drugs themselves or tempt you to continue abusing drugs. Eat a balanced diet and begin a regular exercise program. Follow Up with your doctor or as advised by our staff. Contact one of the resources below for help. National [place] on Alcoholism and Drug Dependence www.ncadd.org 085-821-ZAHX Narcotics Anonymous www.na.org 097-791-3903 National Alcohol and Substance Abuse Information Center (for referral to treatment programs) www.[employer] 028-311-6570 Get Prompt Medical Attention if any of the following occur: Agitation, anxiety, unable to sleep Unintended weight loss (more than 10 to 15 pounds over 3 months) Seizure Chest pain Fever of 100.4F (38C) or higher, or as directed by your healthcare provider Excess drowsiness or inability to be awakened Shortness of breath Slow breathing under 8 breaths per minute Cough with colored sputum Redness, swelling or tenderness at an injection site You have been given the following additional information: Near Syncope, Unknown Dermatitis, Non-Specific Drug Abuse (Electronically signed by Sal Kam Dr. 05/19/2016 11:49)
--- NOTE | 2016-05-19 11:49 | ED MAR SUMMARY ---
..... Medication Administration Record [facility] [address], [place] [id number] Patient: CECE ARMANDO Johnson Visit ID: [id number] 30y, M Weight: 72.5 kg Height/Length: 68 in BMI: 24.3 ALLERGIES: No Known Drug Allergy
--- NOTE | 2016-05-19 11:49 | ED MED RECONCILIATION SUMMARY ---
Patient: CECE ARMANDO Medication Reconciliation Report [facility] VisitID: [id number] [address] [place] [address] 30y, M Registration Date/Time: 05/15/2016 Weight: 72.5 kg Height/Length: 68 in. BMI: 24.3 ALLERGIES: No Known Drug Allergy The patient's Home Medications are listed below: NONE. The source(s) of the original Home Medication information: patient The following Medications were given to the patient in the Emergency Department: None. The following Medications were prescribed to the patient: Bacitracin ointment (available over the counter): apply to affected area twice daily as needed for crusting, weeping or redness until symptoms resolve. Dispense one (1) oz tube. Two refills. -- Sal [address]
--- NOTE | 2016-05-19 11:49 | ED MED RECONCILIATION SUMMARY ---
Patient: CECE ARMANDO Medication Reconciliation Report [facility] VisitID: [id number] [address] [place] [address] 30y, M Registration Date/Time: 05/15/2016 Weight: 72.5 kg Height/Length: 68 in. BMI: 24.3 ALLERGIES: No Known Drug Allergy The patient's Home Medications are listed below: NONE. The source(s) of the original Home Medication information: patient The following Medications were given to the patient in the Emergency Department: None. The following Medications were prescribed to the patient: Bacitracin ointment (available over the counter): apply to affected area twice daily as needed for crusting, weeping or redness until symptoms resolve. Dispense one (1) oz tube. Two refills. -- Sal Kam Dr[address]
== END 2016-05-16 00:01 | disposition home or self-care (01) ==
LOC: ED SRH 20:47
DX: R55 Syncope and collapse (principal); L50.8 Other urticaria; F15.10 Other stimulant abuse, uncomplicated
CPT/HCPCS: 90100; 92760; 92761; 92762; 92763; 92764; 92765; 92766; 92767; 95059